=== PATIENT | female | born 1995 | race Caucasian/White ===

== ENCOUNTER 2017-01-07 16:33 | Emergency (ER) | payer OTHER ==
[~2017-01-07] VITALS: Ht 157.5 cm; Wt 61.2 kg
[~2017-01-07 16:33] MED LIST: ACET325T9 AD; CEPH-264 PO; PNV1TABL25 PO
[2017-01-07 16:48] VITALS: BP 118/72
[2017-01-07 17:56] LABS: BILIRUBIN,URINE NEGATIVE (NEG); GLUCOSE,URINE NEGATIVE (NEG); NITRITE,URINE NEGATIVE (NEG); PH,URINE 6.5; PROTEIN,URINE NEGATIVE (NEG-TRACE)
[2017-01-07 18:05] LABS: BACTERIA,URINE FEW /HPF (0-FEW); RBC,URINE TNTC /HPF (0-2); SQUAMOUS EPITHELIAL CELL,UR OCC /LPF
--- NOTE | 2017-01-07 18:50 | PHYS DOC ---
Past Medical History Past Medical History: Migraines, Other Additional Past Medical Histor: R)ovarian cyst Past Surgical History: Other Additional Past Surgical Histo: D&C x2,laproscopy Alcohol Use: None Drug Use: None Adult General Chief Complaint Chief Complaint: VAGINAL BLEEDING HPI HPI Patient is a 22 year old female with history of anemia who presents today with vaginal bleeding that began 11 days ago. Patient states she has history of heavy bleeding. Patient states she believes her bleeding right now is more than normal. She states she's been soaking 1 feminine pad an hour for the last 1 day. Patient states she also has some abdominal cramping. Review of Systems Review of Systems Constitutional: Denies fever or chills [] Eyes: Denies change in visual acuity, redness, or eye pain [] HENT: Denies nasal congestion or sore throat [] Respiratory: Denies cough or shortness of breath [] Cardiovascular: No additional information not addressed in HPI [] GI: Vaginal bleeding and abdominal cramping] : Denies dysuria or hematuria [] Musculoskeletal: Denies back pain or joint pain [] Integument: Denies rash or skin lesions [] Neurologic: Denies headache, focal weakness or sensory changes [] Endocrine: Denies polyuria or polydipsia [] Allergies Allergies Allergies Coded Allergies Type Severity Reaction Last Updated Verified No Known Drug Allergies 03/15/16 No Physical Exam Physical Exam Constitutional: Well developed, well nourished, no acute distress, non-toxic appearance. [] HENT: Normocephalic, atraumatic, bilateral external ears normal, oropharynx moist, no oral exudates, nose normal. [] Eyes: PERRLA, EOMI, conjunctiva normal, no discharge. [] Neck: Normal range of motion, no tenderness, supple, no stridor. [] Cardiovascular:Heart rate regular rhythm, no murmur [] Lungs & Thorax: Bilateral breath sounds clear to auscultation [] Abdomen: Bowel sounds normal, soft, no tenderness, no masses, no pulsatile masses. [] Pelvic exam External pelvic appears normal, cervix is closed, no CMT, trace amount of bright red blood in the vaginal fault, no adnexal tenderness. Skin: Warm, dry, no erythema, no rash. [] Back: No tenderness, no CVA tenderness. [] Extremities: No tenderness, no cyanosis, no clubbing, ROM intact, no edema. [] Neurologic: Alert and oriented X 3, normal motor function, normal sensory function, no focal deficits noted. [] Psychologic: Affect normal, judgement normal, mood normal. [] Current Patient Data Vital Signs Vital Signs Date Time Temp Pulse Resp B/P (MAP) Pulse Ox O2 Delivery O2 Flow Rate FiO2 01/07/17 16:48 98.3 82 18 99 Room Air 98.3 Lab Values Laboratory Tests Test 01/07/17 16:01 01/07/17 16:45 01/07/17 17:26 POC Urine HCG, Qualitative Hcg negative (Negative) Urine Color Yellow Urine Clarity Clear Urine pH 6.5 Urine Specific Funk >=1.030 Urine Protein Negative mg/dL (NEG-TRACE) Urine Glucose (UA) Negative mg/dL (NEG) Urine Ketones (Stick) Negative mg/dL (NEG) Urine Blood Large (NEG) Urine Nitrite Negative (NEG) Urine Bilirubin Negative (NEG) Urine Urobilinogen Dipstick 1.0 mg/dL (0.2 mg/dL) Urine Leukocyte Esterase Negative (NEG) Urine RBC Tntc /HPF (0-2) Urine WBC 1-4 /HPF (0-4) Urine Squamous Epithelial Cells Occ /LPF Urine Bacteria Few /HPF (0-FEW) Urine Mucus Slight /LPF POC Hemoglobin 10.9 g/dL (12-15) L POC Hematocrit 32 % (36-40) L POC Sodium 140 mmol/L (135-145) POC Potassium 4.0 mmol/L (3.5-5.0) POC Chloride 105 mmol/L (98-110) POC Total CO2 24 mmol/L (23-32) Anion Gap 16 mmol/L (6-14) H POC Blood Urea Nitrogen 15 mg/dL (8-26) POC Creatinine 0.9 mg/dL (0.5-1.4) Glucose Level 88 mg/dL (70-99) POC Ionized Calcium ([place]) 1.17 mmol/L (1.13-1.32) Laboratory Tests 01/07/17 17:26 Microbiology 01/07/17 Wet Prep - Final, Complete EKG EKG [] Radiology/Procedures Radiology/Procedures [] Course & Med Decision Making Course & Med Decision Making Pertinent Labs and Imaging studies reviewed. (See chart for details) Patient is in the ED with complaints of heavy vaginal bleeding for the last 11 days. She stated she has been soaking more than 1 feminine pad an hour. On vaginal exam she had trace amount of blood in her vaginal vault. Hemoglobin is 10.9, hematocrit 32%. She is stable. She was discharged with instructions to follow-up with her [facility] which she has as soon as possible. She was provided return precautions and discharged in stable condition. Dragon Disclaimer Dragon Disclaimer This electronic medical record was generated, in whole or in part, using a voice recognition dictation system. Departure Departure Impression: Primary Impression: Dysfunctional uterine bleeding Disposition: HOME, SELF-CARE Condition: STABLE Referrals: NO PCP (PCP) Follow-up with your [facility] as soon as possible Patient Instructions: Uterine Bleeding, Dysfunctional, [id number] Additional Instructions: You were seen for dysfunctional uterine bleeding. We recommend you follow-up with your [facility] as soon as possible. Continue taking iron tablets. Come back to the emergency room if symptoms worsen. JUANITA RODRÍGUEZ [employer] January 07, 2017 18:50
== END 2017-01-07 19:00 | disposition home or self-care (01) ==
LOC: ER 16:33
DX: N93.8 Other specified abnormal uterine and vaginal bleeding (principal); G43.909 Migraine, unspecified, not intractable, without status migrainosus; Z98.890 Other specified postprocedural states
CPT/HCPCS: 80047; 81001; 81025; 87491; 87591; 99284; Q0111; 36415

== ENCOUNTER 2017-01-15 15:37 | Emergency (ER) | payer OTHER ==
[~2017-01-15] VITALS: Ht 160 cm; Wt 61.2 kg
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
[2017-01-15 15:58] VITALS: BP 122/63
[2017-01-15] MEDS ORDERED: NEOM14.27 TP (15:59)
[2017-01-15] MEDS ORDERED: ACET325T9 PO (15:59)
== END 2017-01-15 16:05 | disposition home or self-care (01) ==
LOC: ER 15:37
DX: S00.01XA Abrasion of scalp, initial encounter (principal); G43.909 Migraine, unspecified, not intractable, without status migrainosus; V86.99XA Unspecified occupant of other special all-terrain or other off-road motor vehicle injured in nontraffic accident, initial encounter; Y93.89 Activity, other specified; Y92.89 Other specified places as the place of occurrence of the external cause; Y99.8 Other external cause status
CPT/HCPCS: 99283

== ENCOUNTER → 2018-05-21 | Outpatient (CLI) | payer OTHER ==
[~2018-05-21] MED LIST changes: +ACET325T9 PO; +NEOM14.27 TP
--- NOTE | 2018-05-21 12:49 | KCIC ---
EXAM: Obstetrics sonogram. HISTORY: Unsure dates. TECHNIQUE: Sonographic imaging of a gravid uterus was performed. COMPARISON: 05/07/2016. FINDINGS: The uterus measures 12.3 x 7.3 x 6.7 cm. The cervix measures 4.2 cm in length. There is a single intrauterine gestational sac with pole and yolk sac. The crown-rump length is 2.3 cm corresponding with 9 weeks and 0 days. The yolk sac is slightly larger than expected, measuring 6.3 cm in diameter. The heart rate is 173 bpm. The ovaries are normal in size and demonstrate normal blood flow. The JENNIFER is 12/24/2018. There is no subchorionic hematoma. The gestational sac is normal in configuration. IMPRESSION: 1. Single intrauterine fetus with an estimated gestational age of 9 weeks and 0 days and heart rate of 173 bpm. 2. Slightly prominent yolk sac diameter, measuring 6.3 mm. The yolk sac maintains normal configuration. Electronically signed by: Lizbeth Kemp MD (05/21/2018 12:45 PM) [facility]
== END | disposition home or self-care (01) ==
LOC: KCIC US 10:45
PROVIDERS: ATTEND Family Medicine
DX: Z36.87 Encounter for antenatal screening for uncertain dates (principal); Z3A.09 9 weeks gestation of pregnancy
CPT/HCPCS: 76801

== ENCOUNTER → 2018-08-06 | Outpatient (CLI) | payer OTHER ==
--- NOTE | 2018-08-07 17:56 | KCIC ---
PREG MORE THAN OR EQ TO 14 WKS History: Supervision of normal Comparison: May 21, 2018 Findings: Multiple sonographic images of the uterus are submitted. There is a single intrauterine fetus, variable position during exam. Cervix measured 4.5 cm in length. heart rate 135 bpm. stomach and bladder were visualized. There is a apparently three-vessel cord, midline cord insertion. There is anterior and fundal placenta. Cerebellum measured 2.06 cm. Subjectively amniotic fluid volume is within normal limits, estimated QAMAR of 10.1 cm. Apparently 2 upper and lower extremities were visualized. 2 kidneys were visualized. There is a four-chamber view of heart. No obvious abnormality is demonstrated of the visualized spine. There has been appropriate interval growth. Maternal adnexal regions are not demonstrated. movement was noted by technologist. Biometry data are as follows: Biparietal diameter 4.89 cm corresponds with 20 weeks 6 days Head circumference 18.9 cm corresponds with 20 weeks 5 days Abdominal circumference 15.52 cm corresponds with 20 weeks 5 days Femur length 3.39 cm corresponds with 20 weeks 5 days Estimated weight 370 g +/- 55 g Adjusted ultrasound age 20 weeks 5 days with estimated delivery date of 12/19/2018 LMP age 20 weeks 0 days with estimated delivery date of 12/24/2018 Impression: 1. There is a single viable intrauterine fetus, variable position throughout exam. There has been appropriate interval growth. No abnormality is demonstrated of the visualized anatomy. Electronically signed by: Neftaly Grier MD (08/07/2018 5:52 PM) [facility]
== END | disposition home or self-care (01) ==
LOC: KCIC US 14:48
PROVIDERS: ATTEND Family Medicine
DX: Z34.92 Encounter for supervision of normal pregnancy, unspecified, second trimester (principal); Z3A.20 20 weeks gestation of pregnancy
CPT/HCPCS: 76805

== ENCOUNTER 2018-10-19 15:24 | Observation (INO) | payer OTHER ==
[~2018-10-19] VITALS: Ht 160 cm; Wt 68.9 kg
[2018-10-19] MEDS ORDERED: MAG HYDROX/ALUMINUM HYD/SIMETH 30 ML ORAL.SUSP PO PRN (16:00)
[2018-10-19] MEDS ORDERED: ONDANSETRON PF 4 MG/2 ML VIAL. IV PRN (16:00)
[2018-10-19] MEDS ORDERED: IV RINGERS,LACTATED 1000ML 1,000 ML IV SCH (16:00)
[2018-10-19] MEDS ORDERED: BETAMET ACET&NA PHOS 30 MG/5 ML VIAL. IM SCH (16:00)
[2018-10-19] MEDS ORDERED: TERBUTALINE 1 MG/ML VIAL. SQ PRN (16:00)
[2018-10-19 16:01] LABS: BILIRUBIN,URINE NEGATIVE (NEG); CLARITY,URINE CLEAR; COLOR,URINE YELLOW; NITRITE,URINE NEGATIVE (NEG); PROTEIN,URINE NEGATIVE (NEG-TRACE); UROBILINOGEN,URINE 0.2 mg/dL (0.2 mg/dL)
[2018-10-19 16:06] LABS: BACTERIA,URINE MODERATE /HPF (0-FEW); SQUAMOUS EPITHELIAL CELL,UR MOD /LPF
[2018-10-19 16:07] LABS: RBC,URINE 0 /HPF (0-2); WBC,URINE OCC /HPF (0-4)
[2018-10-19 16:10] VITALS: BP 102/69
[2018-10-19 16:10] LABS: AMPHETAMINE/METHAMPHETAMINE NEG (NEG); BARBITURATES NEG (NEG); BENZODIAZEPINES NEG (NEG); CANNABINOIDS POS (NEG); COCAINE NEG (NEG); METHADONE NEG (NEG); OPIATES NEG (NEG); PHENCYCLIDINE NEG (NEG)
--- NOTE | 2018-10-19 17:37 | RAD ---
OB ULTRASOUND, > 14 WEEKS Clinical Indication: labor Comparison: OB ultrasound dated 08/06/2018 Technique: Multiple grayscale images, color Doppler, and M-mode images of the uterus are obtained. Findings: There is a single intrauterine gestation in cephalic presentation. The placenta is anterior and fundal in location without evidence of placenta previa. The amount of amniotic fluid appears appropriate. Amniotic fluid index is 11.7 cm. Cervical length is 3.58 cm. Biometrical data: BPD = 8.63 cm for 34 weeks 6 days. HC = 30.26 cm for 33 weeks 4 days. AC = 27.2 cm for 31 weeks 2 days. FL = 5.87 cm for 30 weeks 5 days. CI ratio = 87.7. HC/AC ratio = 1.11. FL/HC ratio = 68.0. FL/AC ratio = 21.6. Overall, the estimated sonographic gestational age is 32 weeks and 4 days for an estimated date of delivery of 12/10/2018. The estimated date of delivery provided by the last menstrual period is 01/03/2019. Estimated weight is 1798 grams. movement and cardiac activity noted. The estimated heart rate is 128 beats per minute. anatomical survey was not performed at this time. Impression: 1. Single live intrauterine gestation with estimated sonographic gestational age of 32 weeks and 4 days with an EDC of 12/10/2018. EDC by LMP is 12/24/2018. 2. Of note, the CI ratio is high measuring 87.7 (normal range 74.0 - 83.0) and the FL/BPD ratio is low measuring 68.0 (normal 71.1-87.1). Electronically signed by: Martir Vogel MD (10/19/2018 5:34 PM) [facility]
== END 2018-10-19 19:00 | disposition home or self-care (01) ==
LOC: 3 SO LND 15:24
PROVIDERS: ADMIT Family Medicine; ATTEND Family Medicine
DX: O62.9 Abnormality of forces of labor, unspecified (principal); Z3A.30 30 weeks gestation of pregnancy
CPT/HCPCS: 76805; 76817; 80307; 81001; 87086; 87491; 87591; 96372; G0378; G0379; J0702; J3105; J7120

== ENCOUNTER 2018-10-20 16:16 | Observation (INO) | payer OTHER ==
[2018-10-19 16:10] VITALS: BP 102/69
[2018-10-20] MEDS ORDERED: BETAMET ACET&NA PHOS 30 MG/5 ML VIAL. IM STA (16:19)
[2018-10-20] MEDS ORDERED: ACETAMINOPHEN 500 MG TABLET PO STA (17:06)
[2018-10-20] MEDS ORDERED: IV RINGERS,LACTATED 1000ML 1,000 ML IV SCH (17:16)
[2018-10-20] MEDS ORDERED: ONDANSETRON PF 4 MG/2 ML VIAL. IV PRN (17:30)
== END 2018-10-20 18:30 | disposition home or self-care (01) ==
LOC: 3 SO LND 16:16
PROVIDERS: ADMIT Family Medicine; ATTEND Family Medicine
DX: O62.9 Abnormality of forces of labor, unspecified (principal); O26.893 Other specified pregnancy related conditions, third trimester; M54.5 Low back pain; Z3A.30 30 weeks gestation of pregnancy
CPT/HCPCS: 96372; G0378; G0379; J0702; 59025

== ENCOUNTER 2018-11-21 20:26 | Observation (INO) | payer OTHER ==
[2018-11-21] MEDS ORDERED: IV RINGERS,LACTATED 1000ML 1,000 ML IV SCH (21:15)
[2018-11-21 21:19] LABS: BILIRUBIN,URINE NEGATIVE (NEG); CLARITY,URINE CLEAR; COLOR,URINE YELLOW; NITRITE,URINE NEGATIVE (NEG); PROTEIN,URINE NEGATIVE (NEG-TRACE); UROBILINOGEN,URINE 0.2 mg/dL (0.2 mg/dL)
[2018-11-21 21:25] LABS: BARBITURATES NEG (NEG); BENZODIAZEPINES NEG (NEG); CANNABINOIDS POS (NEG); COCAINE NEG (NEG); METHADONE NEG (NEG); OPIATES NEG (NEG); PHENCYCLIDINE NEG (NEG)
[2018-11-21 21:28] LABS: AMPHETAMINE/METHAMPHETAMINE NEG (NEG); BACTERIA,URINE MODERATE /HPF (0-FEW); RBC,URINE 0 /HPF (0-2); SQUAMOUS EPITHELIAL CELL,UR MANY /LPF
[2018-11-21] MEDS ORDERED: hydrOXYzine PAMOATE 25 MG CAPSULE PO PRN (21:30)
== END 2018-11-21 23:00 | disposition home or self-care (01) ==
LOC: 3 SO LND 20:26
PROVIDERS: ADMIT Family Medicine; ATTEND Family Medicine
DX: O62.9 Abnormality of forces of labor, unspecified (principal); Z3A.35 35 weeks gestation of pregnancy
CPT/HCPCS: 80307; 81001; 87086; G0378; G0379; Q0177; J7120

== ENCOUNTER 2018-12-17 23:17 | Inpatient (IN) | payer OTHER ==
[~2018-12-17] VITALS: Ht 160 cm; Wt 73.5 kg
[2018-12-18 00:03] LABS: BILIRUBIN,URINE NEGATIVE (NEG); CLARITY,URINE CLEAR; COLOR,URINE YELLOW; NITRITE,URINE NEGATIVE (NEG); PROTEIN,URINE NEGATIVE (NEG-TRACE); UROBILINOGEN,URINE 0.2 mg/dL (0.2 mg/dL)
[2018-12-18 00:10] LABS: BACTERIA,URINE MODERATE /HPF (0-FEW); RBC,URINE 0 /HPF (0-2); SQUAMOUS EPITHELIAL CELL,UR MANY /LPF
[2018-12-18 00:13] LABS: AMNIO PT NEGATIVE
[2018-12-18 01:15] LABS: AMPHETAMINE/METHAMPHETAMINE NEG (NEG); BARBITURATES NEG (NEG); BENZODIAZEPINES NEG (NEG); CANNABINOIDS POS (NEG); COCAINE NEG (NEG); METHADONE NEG (NEG); OPIATES NEG (NEG); PHENCYCLIDINE NEG (NEG)
[2018-12-18] MEDS ORDERED: IV RINGERS,LACTATED 500ML 1,000 ML IV ONE (03:00)
[2018-12-18] MEDS ORDERED: hydrOXYzine PAMOATE 25 MG CAPSULE PO ONE (03:00)
[2018-12-18] MEDS ORDERED: IV RINGERS,LACTATED 1000ML 1,000 ML IV SCH ×2 (04:46→10:50)
[2018-12-18 04:58] LABS: BASO % 0 % (0-3); EOS # 0.1 x10^3/uL (0.0-0.7); EOS % 1 % (0-3); HEMATOCRIT 34.4 % (36.0-47.0); HEMOGLOBIN 11.4 g/dL (12.0-15.5); LYMPH # 1.8 x10^3/uL (1.0-4.8); LYMPH % 21 % (24-48); MEAN CORPUSCULAR HEMOGLOBIN 26 pg (25-35); MEAN CORPUSCULAR HGB CONC 33 g/dL (31-37); MEAN CORPUSCULAR VOLUME 79 fL (79-100); MONO # 0.5 x10^3/uL (0.0-1.1); MONO % 6 % (0-9); NEUT # 6.1 x10^3uL (1.8-7.7); NEUT % 72 % (31-73); PLATELET COUNT 168 x10^3/uL (140-400); RED BLOOD COUNT 4.37 x10^6/uL (3.50-5.40); RED CELL DISTRIBUTION WIDTH 14.3 % (11.5-14.5); WHITE BLOOD COUNT 8.5 x10^3/uL (4.0-11.0)
[2018-12-18] MEDS ORDERED: ONDANSETRON PF 4 MG/2 ML VIAL. IV PRN (05:00)
[2018-12-18] MEDS ORDERED: fentaNYL PF VIAL 100 MCG/2 ML VIAL IV PRN (05:00)
[2018-12-18] MEDS ORDERED: OXYTOCIN 30 UNIT/500 ML PREMIX 500 ML IV PRN ×2 (05:00→19:30)
[2018-12-18] MEDS ORDERED: LIDOCAINE 1% PF 30 ML VIAL. INJ PRN (05:00)
[2018-12-18] MEDS ORDERED: NALBUPHINE 10 MG/ML AMPUL. IV PRN (05:00)
[2018-12-18] MEDS ORDERED: TERBUTALINE 1 MG/ML VIAL. SQ PRN (05:00)
[2018-12-18] MEDS ORDERED: 0.9 % SODIUM CHLORIDE 10 ML DISP.SYRIN. IV PRN ×2 (05:00→19:30)
--- NOTE | 2018-12-18 07:02 | PDOC1 ---
OB - History Hx of Present Care: Limited Care Ultrasounds: Normal mid trimester US Obstetrical Complications: Other ( Labor) Medical Complications: None Past Family/Social History * Past Medical, Surgical, Family and Obstetric Histories reviewed from chart. Blood Type: O+ Rubella: Not Immune RPR/VDRL: Negative GBS Status: Negative HBsAG: Negative OB - Chief Complaint & HPI Date of Admission: Date of Admission: December 17, 2018 at 23:17 Chief Complaint/History : 4 Para: 2 EDC: December 24, 2018 Reason for admission: active labor Admission Nurse Assessment Rev: No OB - Admission Exam Physical Exam HEENT: Normal, Nasal Mucosa Normal, Oropharynx Normal, Moist Membranes, Fontanelles Normal Heart: Regular Rate Lungs: Clear, Equal Abdomen: Gravid Extremities: Normal Pulses, No tenderness or swelling Reflexes: Normal Cervical Dilatation: 3cm Effacement: 25% Station: Ballotable Membranes: Intact Amniotic Fluid: Other Heart Rate: Normal Accelerations: Accelerations Present Decelerations: No decelerations Short Term Variability: Present Fci Variability: Moderate Contractions on Admission: 6-10 Minutes Apart Date/Time Contractions Began;: 12/17/18 at 2300 Intensity: Moderate A/P Pt is a 23yo @ 39.1wga admitted for active labor 1)Active Labor- CEFM. 2)Pain management- waiting for pt to dilate to 4cm before she gets her epidural 3)GBS negative 4)Rubella not immune CALLY VARGAS MD December 18, 2018 07:02
[2018-12-18] MEDS ORDERED: ROPIVacaine 0.2% PF 10 ML VIAL. ONE ×2 (10:56→11:00)
[2018-12-18] MEDS ORDERED: ROPIVacaine 0.2% IN 0.9%NACL PF 40 MG/20 ML DISP.SYRIN. EPID PRN (11:00)
[2018-12-18] MEDS ORDERED: BUPIVACAINE MPF 0.25% 30 ML VIAL. EPID PRN (11:00)
[2018-12-18] MEDS ORDERED: fentaNYL PF VIAL 100 MCG/2 ML VIAL EPI PRN (11:00)
[2018-12-18] MEDS ORDERED: NALOXONE 0.4 MG/ML VIAL. IV PRN (11:00)
[2018-12-18] MEDS: L&D EPIDURAL SYRINGE 50 ML EPID PRN ×3 (11:18→17:32)
[2018-12-18] MEDS ORDERED: BENZOCAINE 20% TOPICAL AEROSOL SPRAY 57GM CAN. TP PRN ×2 (19:00→19:30)
[2018-12-18] MEDS ORDERED: MAGNESIUM HYDROXIDE 2,400 MG/30 ML ORAL.SUSP. PO PRN (19:30)
[2018-12-18] MEDS ORDERED: PHENYLEPH/MINERAL OIL/PETROLAT RECTAL OINTMENT 28GM TUBE. RC PRN (19:30)
[2018-12-18] MEDS ORDERED: diphenhydrAMINE HCL 25 MG CAPSULE PO PRN (19:30)
[2018-12-18] MEDS ORDERED: SIMETHICONE 80 MG TAB.CHEW PO PRN (19:30)
[2018-12-18] MEDS ORDERED: HYDROCORTISONE 1% TOPICAL OINTMENT 30GM TUBE. TP PRN (19:30)
[2018-12-18] MEDS ORDERED: MMR per PROTOCOL. MC PRN (19:30)
[2018-12-18] MEDS ORDERED: IBUPROFEN 400 MG TABLET. PO PRN (19:30)
[2018-12-18] MEDS ORDERED: MAG HYDROX/ALUMINUM HYD/SIMETH 30 ML ORAL.SUSP PO PRN (19:30)
[2018-12-18] MEDS ORDERED: ACETAMINOPHEN 325 MG TABLET. PO PRN (19:30)
[2018-12-18] MEDS ORDERED: DOCUSATE SODIUM 100 MG CAPSULE. PO PRN (19:30)
--- NOTE | 2018-12-18 19:43 | PDOC ---
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 Vargas Signs of Intrauterine Infectio: None Shoulder Dystocia: No A/P Pt is a 23yo [id number] s/p at 39.1wga 1) 2)GBS negative 3) 4)Rubella non immune CALLY VARGAS MD December 18, 2018 19:43
[2018-12-18 21:40] VITALS: BP 102/68
[2018-12-18 22:40] VITALS: BP 106/65
[2018-12-18] MEDS: IBUPROFEN 400 MG TABLET. PO PRN (23:41)
[2018-12-19 05:50] LABS: HEMATOCRIT 27.2 % (36.0-47.0); HEMOGLOBIN 9.4 g/dL (12.0-15.5); RED BLOOD COUNT 3.44 x10^6/uL (3.50-5.40); RED CELL DISTRIBUTION WIDTH 14.7 % (11.5-14.5); WHITE BLOOD COUNT 8.3 x10^3/uL (4.0-11.0)
[2018-12-19 06:07] VITALS: BP 89/49
[2018-12-19] MEDS: IBUPROFEN 400 MG TABLET. PO PRN (06:56)
[2018-12-19 12:44] VITALS: BP 107/73
--- NOTE | 2018-12-19 15:32 | NUR ---
SS following up with referral regarding "positive UDS." Per record mother was positive for Marijuana on admission. Mother also had positive Marijuana screens on 11/21/2018 and 10/19/2018. SS met with mother to assess circumstances surrounding this referral. Mother reported that she has had two other children at [place], both in her custody. Mother admitted to testing positive for Marijuana with previous children. 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 Mother reported that Dr. Kadie Ng has agreed to see her children for pediatric care. Mother reported that she has WIC and Medicaid and is a stay at home mother. Mother reported having good family support and having all needed supplies for . Records show mother has a past history of Bipolar and ADHD. Mother reported that she has received treatment for her mental health in the community. Mother and infant RN reported no other concerns at this time. [facility] hotline made for positive Marijuana screen, intake #[id number]. Mother and RN notified.
--- NOTE | 2018-12-19 17:29 | PDOC ---
OB Progress Note Date of Service 12/19/18 Time of Evaluation 1645 Date: 12/19/18 Time: 170 Notes Mom doing well. Lots of uterine cramping with ; currently taking tylenol and ibuprofen. Bleeding is decreasing. going well Lab Laboratory Tests Test 12/17/18 23:35 12/17/18 23:55 12/18/18 04:42 12/19/18 04:50 Urine Collection Type Unknown Urine Color Yellow Urine Clarity Clear Urine pH 6.0 Urine Specific Lequire >=1.030 Urine Protein Negative mg/dL (NEG-TRACE) Urine Glucose (UA) Negative mg/dL (NEG) Urine Ketones (Stick) 15 mg/dL (NEG) Urine Blood Negative (NEG) Urine Nitrite Negative (NEG) Urine Bilirubin Negative (NEG) Urine Urobilinogen Dipstick 0.2 mg/dL (0.2 mg/dL) Urine Leukocyte Esterase Small (NEG) Urine RBC 0 /HPF (0-2) Urine WBC 1-4 /HPF (0-4) Urine Squamous Epithelial Cells Many /LPF Urine Bacteria Moderate /HPF (0-FEW) Urine Mucus Marked /LPF Urine Opiates Screen Neg (NEG) Urine Methadone Screen Neg (NEG) Urine Barbiturates Neg (NEG) Urine Phencyclidine Screen Neg (NEG) Urine Amphetamine/Methamphetamine Neg (NEG) Urine Benzodiazepines Screen Neg (NEG) Urine Cocaine Screen Neg (NEG) Urine Cannabinoids Screen Pos (NEG) Urine Ethyl Alcohol Neg (NEG) Amniotic Fluid Swab Test Negative White Blood Count 8.5 x10^3/uL (4.0-11.0) 8.3 x10^3/uL (4.0-11.0) Red Blood Count 4.37 x10^6/uL (3.50-5.40) 3.44 x10^6/uL (3.50-5.40) Hemoglobin 11.4 g/dL (12.0-15.5) 9.4 g/dL (12.0-15.5) Hematocrit 34.4 % (36.0-47.0) 27.2 % (36.0-47.0) Mean Corpuscular Volume 79 fL (79-100) 79 fL (79-100) Mean Corpuscular Hemoglobin 26 pg (25-35) 27 pg (25-35) Mean Corpuscular Hemoglobin Concent 33 g/dL (31-37) 35 g/dL (31-37) Red Cell Distribution Width 14.3 % (11.5-14.5) 14.7 % (11.5-14.5) Platelet Count 168 x10^3/uL (140-400) 133 x10^3/uL (140-400) Neutrophils (%) (Auto) 72 % (31-73) Lymphocytes (%) (Auto) 21 % (24-48) Monocytes (%) (Auto) 6 % (0-9) Eosinophils (%) (Auto) 1 % (0-3) Basophils (%) (Auto) 0 % (0-3) Neutrophils # (Auto) 6.1 x10^3uL (1.8-7.7) Lymphocytes # (Auto) 1.8 x10^3/uL (1.0-4.8) Monocytes # (Auto) 0.5 x10^3/uL (0.0-1.1) Eosinophils # (Auto) 0.1 x10^3/uL (0.0-0.7) Basophils # (Auto) 0.0 x10^3/uL (0.0-0.2) Treponema pallidum Antibody Nonreactive (Nonreactive) Laboratory Tests Test 12/19/18 04:50 White Blood Count 8.3 x10^3/uL (4.0-11.0) Red Blood Count 3.44 x10^6/uL (3.50-5.40) Hemoglobin 9.4 g/dL (12.0-15.5) Hematocrit 27.2 % (36.0-47.0) Mean Corpuscular Volume 79 fL (79-100) Mean Corpuscular Hemoglobin 27 pg (25-35) Mean Corpuscular Hemoglobin Concent 35 g/dL (31-37) Red Cell Distribution Width 14.7 % (11.5-14.5) Platelet Count 133 x10^3/uL (140-400) Medications Current Medications Ringer's Solution 1,000 ml @ 500 mls/hr 1X ONCE IV Last administered on 12/18/18at 03:00; Start 12/18/18 at 03:00; Stop 12/18/18 at 04:59; Status DC Hydroxyzine Pamoate (Vistaril) 50 mg 1X ONCE PO Last administered on 12/18/18at 03:16; Start 12/18/18 at 03:00; Stop 12/18/18 at 03:01; Status DC Sodium Chloride (Normal Saline Flush) 3 ml QSHIFT PRN IV AFTER MEDS AND BLOOD DRAWS; Start 12/18/18 at 05:00; Stop 12/19/18 at 11:21; Status DC Ringer's Solution 1,000 ml @ 125 mls/hr Q8H IV Last administered on 12/18/18at 11:15; Start 12/18/18 at 04:46; Stop 12/19/18 at 08:54; Status DC Nalbuphine HCl (Nubain) 10 mg PRN Q1HR PRN IV Severe labor pain; Start 12/18/18 at 05:00 Fentanyl Citrate (Fentanyl 2ml Vial) 100 mcg PRN Q30MIN PRN IV Severe pain; Start 12/18/18 at 05:00 Ondansetron HCl (Zofran) 4 mg PRN Q4HRS PRN IV NAUSEA/VOMITING; Start 12/18/18 at 05:00 Terbutaline Sulfate (Brethine) 0.25 mg 1X PRN PRN SQ SEE COMMENTS; Start 12/18/18 at 05:00; Stop 12/19/18 at 04:59; Status DC Lidocaine HCl (Xylocaine 1% Pf 30ml Vial) 30 ml 1X PRN PRN INJ SEE COMMENTS; Start 12/18/18 at 05:00; Stop 12/20/18 at 04:59 Oxytocin/Sodium Chloride 500 ml @ 0 mls/hr CONT PRN PRN IV Post delivery bleeding Last administered on 12/18/18at 15:04; Start 12/18/18 at 05:00 Ibuprofen (Motrin) 800 mg PRN Q6HRS PRN PO PAIN Last administered on 12/19/18at 06:56; Start 12/18/18 at 05:00; Stop 12/19/18 at 11:21; Status DC Ringer's Solution 1,000 ml @ 1,000 mls/hr Q1H IV Last administered on 12/18/18at 14:25; Start 12/18/18 at 10:50; Stop 12/18/18 at 11:49; Status DC Naloxone HCl (Narcan) 0.04 mg PRN Q1MIN PRN IV SEE COMMENTS; Start 12/18/18 at 11:00 Fentanyl Citrate (Fentanyl 2ml Vial) 100 mcg PRN 1X PRN EPI FOR ANESTHESIA Last administered on 12/18/18at 11:16; Start 12/18/18 at 11:00; Stop 12/19/18 at 10:59; Status DC Bupivacaine HCl (Sensorcaine Mpf 0.25%) 10 ml PRN 1X PRN EPID FOR ANESTHESIA; Start 12/18/18 at 11:00; Stop 12/19/18 at 10:59; Status DC Ropivacaine/ Fentanyl/NS 50 ml @ 14 mls/hr CONT PRN EPID PAIN Last administered on 12/18/18at 17:32; Start 12/18/18 at 11:00 Ropivacaine/ Sodium Chloride (ROPIVacaine 0.2% - 0.9%NACL PF) 40 mg 1X PRN PRN EPID PER ANESTHESIA; Start 12/18/18 at 11:00; Stop 12/19/18 at 10:50; Status DC Ropivacaine (Naropin 0.2%) 10 ml STK-MED ONCE .ROUTE ; Start 12/18/18 at 10:56; Stop 12/18/18 at 10:57; Status DC Benzocaine (Americaine) 1 spray PRN Q4HRS PRN TP PAIN; Start 12/18/18 at 19:00; Stop 12/19/18 at 11:21; Status DC Sodium Chloride (Normal Saline Flush) 10 ml QSHIFT PRN IV AFTER MEDS AND BLOOD DRAWS; Start 12/18/18 at 19:30 Oxytocin/Sodium Chloride 500 ml @ 62.5 mls/hr CONT PRN IV SEE I/O RECORD; Start 12/18/18 at 19:30; Stop 12/19/18 at 03:29; Status DC Acetaminophen (Tylenol) 650 mg PRN Q6HRS PRN PO MILD PAIN / TEMP Last administered on 12/19/18at 16:01; Start 12/18/18 at 19:30 Ibuprofen (Motrin) 800 mg PRN Q8HRS PRN PO INFLAMMATION/PAIN PREVENTION Last administered on 12/19/18at 11:37; Start 12/18/18 at 19:30 Docusate Sodium (Colace) 100 mg PRN BID PRN PO CONSTIPATION; Start 12/18/18 at 19:30 Magnesium Hydroxide (Milk Of Magnesia) 2,400 mg PRN DAILY PRN PO CONSTIPATION; Start 12/18/18 at 19:30 Al Hydroxide/Mg Hydroxide (Mylanta Plus Xs) 30 ml PRN Q4HRS PRN PO HEARTBURN / GAS; Start 12/18/18 at 19:30 Simethicone (Gas-X) 80 mg PRN AFTMEALHC PRN PO GAS / BLOATING; Start 12/18/18 at 19:30 Diphenhydramine HCl (Benadryl) 25 mg PRN Q6HRS PRN PO ITCHING; Start 12/18/18 at 19:30 Benzocaine (Americaine) 1 spray PRN QID PRN TP TOPICAL PAIN; Start 12/18/18 at 19:30 Phenyleph/Shark Oil/Min Oil/Petrol (Preparation H) 1 gisselle PRN QID PRN RC RECTAL PAIN; Start 12/18/18 at 19:30 Hydrocortisone (Cortaid) 1 gisselle PRN QID PRN TP PERINEAL PAIN; Start 12/18/18 at 19:30 Info (Do NOT chart on this placeholder) 1 ea 1X PRN PRN MC SEE COMMENTS; Start 12/18/18 at 19:30 Ropivacaine (Naropin 0.2%) 10 ml STK-MED ONCE .ROUTE ; Start 12/18/18 at 11:00; Stop 12/19/18 at 12:14; Status DC Active Scripts Active Tylenol (Acetaminophen) 325 Mg Tablet 1-2 Tab PO QID PRN Neosporin Antibiotic Ointment (Neomy Sulf/Bacitrac Zn/Poly) 14.2 Gm Oint...g. 14.2 Gm TP 5XDAY Keflex (Cephalexin) 500 Mg Capsule 1 Cap PO TID Reported Tylenol (Acetaminophen) 325 Mg Tablet 500 Mg AD DAILY Tablet (Pnv Cmb#95/Ferrous Fumarate/Fa) 1 Each Tablet 1 PO No Known Medications Prior To Admisstion (Info) Each 1 Each MC Exam GEN: NAD, AOx3 HEENT: MMM, EOMI, no scleral icterus/injection Cardiac: RRR, no M/R/G Lungs: CTAB Abd: fundal height 2cm above umbilicus Ext: no erythema/edema LE bilaterally Neuro: CN2-12 GI Assessment Pt is a 23yo [id number] s/p at 39.1wga 1) 2)GBS negative 3) 4)Rubella non immune- give MMR prior to discharge 5)Anemia- 2/2 blood loss. Start Ferrous Sulfate CALLY VARGAS MD December 19, 2018 17:29
[2018-12-19 21:45] VITALS: BP 100/70
[2018-12-20 04:49] VITALS: BP 97/72
--- NOTE | 2018-12-20 06:11 | PDOC3 ---
OB DISCHARGE SUMMARY DATE OF ADMISSION: 12/18/18 DATE OF DISCHARGE: 12/20/18 REASON FOR ADMISSION: Onset of labor PROCEDURES: Mgmt of OB Complications ( Labor) INTRAPARTUM PROCEDURES: Spontanous Vag Deliv DISCHARGE DIAGNOSIS: Term Delivered DISCHARGE INFORMATION: Activity (As tolerated), Diet (Regular), Medications ( Ibuprofen 800mg TID prn pain, Docusate 100mg qday), Instructions (Follow up with Dr. Vargas in 4-6 weeks), Discharge to (Home) HOSPITAL COURSE Pt is a 23yo [id number] s/p at 39.1wga 1) 2)GBS negative 3)- pt having some issues with just because her milk has not come in yet. Encouraged her to continue attempting breast first and th en supplementing after if needed. 4)Rubella non immune- give MMR prior to discharge 5)Anemia- 2/2 blood loss. Will D/C on Ferrous Sulfate CALLY VARGAS MD December 20, 2018 06:11
[2018-12-20] MEDS ORDERED: FERROUS SULFATE 325 MG TABLET. PO SCH (08:00)
[2018-12-20] MEDS ORDERED: MEASLES, MUMPS & RUBELLA VACC 0.5 ML VIAL. VAX SQ ONE (09:30)
== END 2018-12-20 13:29 | disposition home or self-care (01) | DRG 806 ==
LOC: 3 SO LND 23:17 → OBSVTOIN 12-18 19:02 → 3 NORTH 12-18 21:40
PROVIDERS: ADMIT Family Medicine; ATTEND Family Medicine
PROC: 10E0XZZ Delivery of Products of Conception, External Approach (ICD-10-PCS; principal; 2018-12-18)
PROC: 00HU33Z Insertion of Infusion Device into Spinal Canal, Percutaneous Approach (ICD-10-PCS; 2018-12-18)
PROC: 3E0R3BZ Introduction of Anesthetic Agent into Spinal Canal, Percutaneous Approach (ICD-10-PCS; 2018-12-18)
DX: O99.02 Anemia complicating childbirth (principal); D62 Acute posthemorrhagic anemia; Z37.0 Single live birth; Z3A.39 39 weeks gestation of pregnancy
CPT/HCPCS: 36415; 80307; 81001; 84112; 85025; 85027; 86592; 86850; 86900; 86901; 87086; 90471; 90707; G0378; G0379; J2590; J2795; J3010; J7120; Q0177

== ENCOUNTER 2020-12-01 05:40 | Observation (INO) | payer MEDICAID ==
[2020-12-01] MEDS ORDERED: IV RINGERS,LACTATED 1000ML 1,000 ML IV SCH ×2 (05:45)
[2020-12-01] MEDS ORDERED: ONDANSETRON PF 4 MG/2 ML VIAL. IVP PRN (05:45)
[2020-12-01] MEDS ORDERED: ACETAMINOPHEN 325 MG TABLET. PO PRN (05:45)
[2020-12-01 07:20] LABS: BILIRUBIN,URINE NEGATIVE (NEG); CLARITY,URINE CLEAR; COLOR,URINE YELLOW; NITRITE,URINE NEGATIVE (NEG); PROTEIN,URINE NEGATIVE (NEG-TRACE)
[2020-12-01 07:26] LABS: BARBITURATES NEG (NEG); BENZODIAZEPINES NEG (NEG); CANNABINOIDS POS (NEG); COCAINE NEG (NEG); METHADONE NEG (NEG); OPIATES NEG (NEG); PHENCYCLIDINE NEG (NEG)
[2020-12-01 07:27] LABS: AMPHETAMINE/METHAMPHETAMINE NEG (NEG)
[2020-12-01 07:30] LABS: AMORPHOUS SEDIMENT,UR PRESENT /HPF; BACTERIA,URINE 0 /HPF (0-FEW); RBC,URINE 0 /HPF (0-2); WBC,URINE RARE /HPF (0-4)
== END 2020-12-01 08:30 | disposition home or self-care (01) ==
LOC: 3 SO LND 05:40
PROVIDERS: ADMIT Obstetrics & Gynecology; ATTEND Obstetrics & Gynecology
DX: O26.893 Other specified pregnancy related conditions, third trimester (principal); R10.9 Unspecified abdominal pain; Z3A.32 32 weeks gestation of pregnancy; Z79.899 Other long term (current) drug therapy
CPT/HCPCS: 59025; 80307; 81001; 96360; G0378; G0379; J7120

== ENCOUNTER → 2020-12-16 | Outpatient (CLI) | payer MEDICAID ==
--- NOTE | 2020-12-16 15:00 | RAD ---
EXAM: Bilateral lower extremity venous Doppler sonogram. HISTORY: Pain and swelling. TECHNIQUE: Giordano scale and color Doppler sonographic evaluation of the bilateral lower extremity veins with spectral waveform analysis was performed. FINDINGS: The patient refused imaging of the left lower extremity distal to the superficial femoral v ein. There is normal color flow, normal compressibility and there are normal spectral waveforms in th e remainder of the lower extremity veins. IMPRESSION: No Doppler evidence of lower extremity deep venous thrombosis, with nonassessment of the left popliteal and calf veins due to patient refusal. Electronically signed by: Lizbeth Kemp MD (12/16/2020 2:57 PM) [id number]
== END ==
LOC: US 13:54
PROVIDERS: ATTEND Obstetrics & Gynecology
DX: Z34.93 Encounter for supervision of normal pregnancy, unspecified, third trimester (principal); R60.0 Localized edema; Z3A.00 Weeks of gestation of pregnancy not specified
CPT/HCPCS: 93970